=== PATIENT | female | born 1960 | race Caucasian/White ===

== ENCOUNTER 2021-07-12 12:18 | Outpatient (CLI) | payer OTHER, SELFPAY ==
--- NOTE | ~2021-07-12 | MR_ITS ---
EXAMINATION: MR cervical spine wo con DATE: 07/12/2021 13:11 INDICATION: Disease of spinal cord, unspecified. Neck pain. TECHNIQUE: Magnetic resonance imaging (MRI) of the cervical spine was performed without intravenous c ontrast. Sequences included sagittal T2-weighted FSE, sagittal T2-weighted FS FSE, sagittal T1-weight ed FSE, axial MERGE, and axial T2-weighted FSE. COMPARISON: Cervical spine MRI 10/13/2019 FINDINGS: Bone alignment is normal. Vertebral body heights are normal. There are changes of anterior fusion procedure from C5 to C7 with discectomies and anterior plate and screws. Intervertebral disc h eights are normal. There is increased T2-weighted signal intensity in the spinal cord on the right at C5-C6, consistent with myelomalacia. The following disc levels are specifically discussed: C2-C3: The disc does not extend beyond the endplate margin. There is no uncovertebral joint osteoarth ritis. There is severe bilateral facet joint osteoarthritis. There is mild left neural foraminal sten osis. There is no central canal stenosis. C3-C4: The disc does not extend beyond the endplate margin. There is mild right and moderate left unc overtebral joint osteoarthritis. There is moderate right and severe left facet joint osteoarthritis. There is mild right and moderate left neural foraminal stenosis. There is no central canal stenosis. C4-C5: The disc is bulging. There is mild right and moderate left uncovertebral joint osteoarthritis. There is severe bilateral facet joint osteoarthritis. There is mild bilateral neural foraminal steno sis. There is mild central canal stenosis. C5-C6: There is mild bilateral uncovertebral joint hypertrophy. There is mild bilateral facet joint o steoarthritis. There is mild bilateral neural foraminal stenosis. There is no central canal stenosis. C6-C7: There is moderate bilateral uncovertebral joint hypertrophy. There is mild right facet joint o steoarthritis. There is mild bilateral neural foraminal stenosis. There is no central canal stenosis. C7-T1: The disc is bulging. There is mild bilateral uncovertebral joint osteoarthritis. There is catia re right and moderate left facet joint osteoarthritis. There is mild bilateral neural foraminal steno sis. There is no central canal stenosis. IMPRESSION: 1. Myelomalacia at C5-C6. 2. Anterior fusion procedure from C5 to C7. 3. Moderate cervical spondylosis, stable from 10/13/2019. Reviewed, dictated and finalized at location A.
== END 2021-07-12 12:19 | disposition home or self-care (01) ==
LOC: ANHIMG 12:27
PROVIDERS: PCP Internal Medicine Infectious Disease; Visit Provider Psychiatry & Neurology Neurology
DX: G95.89 Other specified diseases of spinal cord (principal); Z98.1 Arthrodesis status; M47.813 Spondylosis without myelopathy or radiculopathy, cervicothoracic region
CPT/HCPCS: 72141

== ENCOUNTER 2022-06-09 08:28 | Outpatient (CLI) | payer OTHER, SELFPAY ==
--- NOTE | ~2022-06-09 | MR_ITS ---
EXAMINATION: MR lumbar spine wo con DATE: 06/09/2022 09:24 INDICATION: Back pain. TECHNIQUE: Magnetic resonance imaging (MRI) of the lumbar spine was performed without intravenous con trast. Sequences included sagittal T2-weighted FSE, sagittal T2-weighted FS FSE, sagittal T1-weighted FSE, and axial T2-weighted FSE. COMPARISON: Lumbar spine MRI 10/08/2018 FINDINGS: Bone alignment is normal. Vertebral body heights are normal. There is mildly decreased disc height at L2-L3 and moderately decreased disc height at L5-S1. The distal spinal cord signal intensi ty is normal. The conus medullaris is at L1. The following disc levels are specifically discussed: L1-L2: The disc does not extend beyond the endplate margin. There is mild left facet joint osteoarthr itis. There is no neural foraminal stenosis. There is no central canal stenosis. L2-L3: The disc is bulging. There is mild bilateral facet joint osteoarthritis. There is mild bilater al neural foraminal stenosis. There is mild central canal stenosis. L3-L4: The disc is bulging. There is moderate bilateral facet joint osteoarthritis. There is mild sancho ateral neural foraminal stenosis. There is mild central canal stenosis. L4-L5: The disc is bulging and has an annular fissure. There is severe bilateral facet joint osteoart hritis. There is mild bilateral neural foraminal stenosis. There is mild central canal stenosis. L5-S1: The disc is bulging and has an annular fissure. The disc abuts the left S1 nerve root in left lateral recess. There is moderate bilateral facet joint osteoarthritis. There is mild bilateral neura l foraminal stenosis. There is mild central canal stenosis. IMPRESSION: 1. Moderate lower lumbar spondylosis, stable from 10/08/2018. Reviewed, dictated and finalized at location A.
== END 2022-06-09 08:29 | disposition home or self-care (01) ==
LOC: ANHIMG 08:30
PROVIDERS: PCP Internal Medicine Infectious Disease; Visit Provider Neurological Surgery
DX: M47.896 Other spondylosis, lumbar region (principal)
CPT/HCPCS: 72148

== ENCOUNTER 2022-09-07 11:13 | Outpatient (CLI) | payer OTHER, SELFPAY ==
--- NOTE | 2022-09-07 11:48 | ECG_ITS ---
Measurements Intervals [place] Rate: 58 P: 56 [place]: 140 QRS: 17 QRSD: 88 T: 73 QT: 392 QTc: 387 Interpretive Statements SINUS BRADYCARDIA WITH SINUS ARRHYTHMIA BORDERLINE ST-T WAVE ABNORMALITY- HIGH LATERAL LEADS BASELINE ARTIFACT- I, II, III BORDERLINE ECG NO PREVIOUS ECG AVAILABLE FOR COMPARISON Electronically Signed On 09-07-2022 12:51:50 CDT by Jb Pro D.O.
[2022-09-07 12:15] LABS: Anion Gap 12 mmol/L (8-16); Blood Urea Nitrogen 15 mg/dL (7-17); Calcium 9.4 mg/dL (8.4-10.2); Carbon Dioxide 30 mmol/L (22-30); Chloride 97 mmol/L (98-107); Estimated Glomerular Filt Rate > 60; Glucose 125 mg/dL (65-110); Potassium 3.7 mmol/L (3.4-5.0); Sodium 139 mmol/L (137-145)
== END 2022-09-07 11:14 | disposition home or self-care (01) ==
PROVIDERS: Anesthesiology; PCP Internal Medicine Infectious Disease; Visit Provider Neurological Surgery
DX: M51.26 Other intervertebral disc displacement, lumbar region (principal); Z79.899 Other long term (current) drug therapy; Z01.818 Encounter for other preprocedural examination; R94.31 Abnormal electrocardiogram [ECG] [EKG]
CPT/HCPCS: 36415; 80048; 86850; 86900; 86901; 93005

== ENCOUNTER 2022-09-21 01:32 | Day surgery (SDC) | payer OTHER, SELFPAY ==
[2022-09-06 12:33] VITALS: BMI 28.9
--- NOTE | 2022-09-06 12:43 | PC.NURSE ---
Addendum entered by Kacey Macdonald RN 09/14/22 12:29: PT TO ARRIVE AT 0600 ON 09/21/22 FOR SURGERY AT 0730. MAXIMUM 20 OZ OF WATER UNTIL 0430. STOP VITAMINS AFTER 09/17/22. Original Note: Report to the Outpatient Waiting Room, entrance under the green pavilion located off [facility], at time 12:00 on date 09/12/22. Planned Procedure Time: 2:00. Time changes happen often and if your time is changed the preop area will call you the afternoon before. - You and your visitor will be asked to self-screen and do not enter if you have any COVID symptoms. - We encourage only one visitor and NO visitors under age 16 are allowed at this time. Your visitor will receive communication by the phone number that is given day of service. - The patient visitor is requested to social distance or may leave the building when not with patient due to restrictions. - A mask is OPTIONAL within the hospital. Patients may have clear liquids (water, carbonated beverages, clear teas, apple juice) until 3 hours prior to surgery (11:00) with a maximum of 20 ounces. - No food from midnight until time of surgery Take the following medications with a SIP of water the morning of surgery: INHALER, AMLODIPINE, ISOSORBIDE Medications to discontinue per physician: VITAMINS Date to take last dose: 09/08/22 Please no make-up, nail khmer, hairspray, perfume, deodorant, or body powder the day of surgery. No jewelry (including any body piercings) or valuables the day of surgery, leave them at home. Please take a shower or bath the night before, or the morning of, surgery with an antibacterial soap. Wear comfortable, loose fitting clothing. - Jewelry must be removed prior to entering the operating room. Rings and piercings that are not removed may be cut off. - The hospital will not accept responsibility for valuables. - Please leave all valuables, including medications, at home the day of surgery. If you are going home after surgery, a licensed limousine driver must drive you home. - NO public transportation without another adult. - We recommend that an adult stay with you for 24 hours following discharge. - We also recommend that you do not drive, make important decision, drink alcoholic beverages, or take any drugs that were not prescribed by your health care provider for at least 24 hours after your discharge time. Follow any additional instructions given to you from your surgeon. If you or anyone in your household have experienced Covid symptoms in the past week, please notify your surgeon or the nurse liaison at the phone number below for possible testing. Telephone instructions given to SAMUEL - ABBI MEJIA and asked if any additional questions and then verbalized understanding. Patient advised to call surgeon office or pre surgery nurse liaison [phone] if any additional questions.
--- NOTE | 2022-09-14 12:30 | PC.NURSE ---
Pt states no changes in medications or health history since initial interview. New pre-op instructions reviewed with pt. Pt denies further questions at this time.
--- NOTE | 2022-09-20 13:28 | WPDANESEPPF ---
Anes - Initial Pre Proc Eval Procedure: Operation Date: 09/21/22 07:30 Proposed Procedures p Left L4-5, Left L5-S1 Far Lateral Foraminotomy Microdiscectomy - Adolfo Bruno MD Date/Time: 09/20/22 13:28 Surgeon: Adolfo Bruno MD Pre Op Diagnosis: Lumbar Disc Herniation Patient Data Age: 62 Gender: F Height: 1.65 m Weight: 78.93 kg Allergies Allergy/AdvReac Type Severity Reaction Status Date / Time No Known Allergies Allergy Verified 09/14/22 12:30 Home Medications Medication Instructions Recorded Confirmed Type amlodipine 10 mg tablet 10 mg PO DAILY 06/03/21 09/14/22 History atorvastatin 40 mg tablet (Lipitor) 40 mg PO DAILY 06/03/21 09/14/22 History hydrochlorothiazide 25 mg tablet 25 mg PO DAILY 06/03/21 09/14/22 History isosorbide dinitrate 30 mg tablet 30 mg PO .COMPLEX 06/03/21 09/14/22 History nitroglycerin 0.4 mg sublingual 0.4 mg sublingual Q5M 06/03/21 09/14/22 History tablet (Nitrostat) albuterol sulfate 90 mcg/actuation 1 inh inhalation Q4H 05/22/22 09/14/22 History aerosol inhaler cholecalciferol (vitamin D3) 50 50 mcg PO DAILY 09/06/22 09/14/22 History mcg (2,000 unit) tablet (Vitamin D3) Patient hx anesthesia problems: none Family hx anesthesia problems: none Results Review: All pre-operative results and documents have been reviewed as part of the pre-operative evaluation. FOR[facility]LY [facility] Past Medical History Medical History (Updated 09/20/22 @ 13:30 by Dontrell Bill DO) Burning sensation of ulnar region of forearm Cervicalgia COPD (chronic obstructive pulmonary disease) Diabetes History of heart attack 10 years ago Hyperlipidemia Hypertension Myelopathy GABRIELA (obstructive sleep apnea) quit using CPAP Surgical History Surgical History (Updated 09/20/22 @ 13:30 by Dontrell Bill DO) Hx of fusion of cervical spine S/P cervical spinal fusion Family History Family History Other Acute myocardial infarction Asthma Breast cancer Diabetes mellitus Heart disease Hypertension Social History Social History Smoking packs per day: 1 Smoking cigarettes per day: 20.0 Years smoked: 35 Smoking pack-years: 35.00 Smoking status: Current every day smoker Tobacco type: cigarettes Additional smoking assessment comments: CUTTING DOWN OF 09/05/22 - USING NICOTINE PATCH Alcohol intake: never Living arrangements: alone Spiritual care concerns: No Anes - Eval Final PreProcedure Day of Procedure 09/20/22 13:28 Patient weight: obese Heart: regular rate and rhythm Lungs: clear to auscultation Airway: Mallampati scale class II Neurological: alert and oriented Last oral intake: >/= 8 hours ASA classification: III Emergent: no Anesthetic plan: proceed Anesthesia type and monitoring: general ETT and standard monitoring Results Review: All pre-operative results and documents have been reviewed as part of the pre-operative evaluation. Informed Consent: The patient's anesthetic plan and its attendant risks and benefits were discussed with the patient/family/POA. Questions were solicited and answers provided to the satisfaction of the patient/family/POA.
[2022-09-21] VITALS (10 sets, daily range): BP systolic 112–152; BP diastolic 57–73; PULSE 61–93; RESP 15–21; TEMP 36.6–36.8; O2SAT 92–100
--- NOTE | ~2022-09-21 | XR_ITS ---
EXAMINATION: XR fluoroscopy no charge INDICATION: Microdiscectomy TECHNIQUE: A single intraoperative fluoroscopic image is submitted for review. Total fluoroscopic alexey e was 1.3 seconds. COMPARISON: None available FINDINGS: Fluoroscopic image demonstrates a surgical instrument situated posteriorly at the level of L5. Please refer to procedure note for full details. IMPRESSION: 1. Please refer to procedure note for full details. Reviewed, dictated and finalized at location F. RAL RESOURCES TECHNICIAN
[2022-09-21] MEDS: LACTATED RINGERS 1,000 ML 30 ML IV CONT ×2 (07:07→09:32)
--- NOTE | 2022-09-21 07:33 | PM.IMHP ---
H&P: HPI History of Present Illness Date/Time: 09/21/22 07:33 Chief Complaint: Back and leg pain Narrative: Krista is a 62-year-old female with back and leg pain related foraminal stenosis at L4-5 and L5-S1 who presents for far lateral foraminotomy and microdiskectomy. She has not changed appreciably since we last saw her. She is not having bowel or bladder difficulty. She does not have dermatomal numbness or specific muscle group weakness. Review of Systems Review of Systems: Patient denies, fever, chills, nausea, vomiting, weight loss, weight gain, chest pain, dysuria. She has shortness of breath and cough at times. She acknowledges back and leg pain as above. The review of systems is otherwise negative on 12 systems PMFSH Past Medical History Medical History Burning sensation of ulnar region of forearm Cervicalgia COPD (chronic obstructive pulmonary disease) Diabetes History of heart attack 10 years ago Hyperlipidemia Hypertension Myelopathy GABRIELA (obstructive sleep apnea) quit using CPAP Surgical History Surgical History Hx of fusion of cervical spine S/P cervical spinal fusion Family History Family History Other Acute myocardial infarction Asthma Breast cancer Diabetes mellitus Heart disease Hypertension Social History Social History Smoking packs per day: 1 Smoking cigarettes per day: 20.0 Years smoked: 35 Smoking pack-years: 35.00 Smoking status: Current every day smoker Tobacco type: cigarettes Additional smoking assessment comments: CUTTING DOWN OF 09/05/22 - USING NICOTINE PATCH Alcohol intake: never Living arrangements: alone Spiritual care concerns: No Meds Home Medications and Allergies Home Medications Medication Instructions Recorded Confirmed Type amlodipine 10 mg tablet 10 mg PO DAILY 06/03/21 09/14/22 History atorvastatin 40 mg tablet (Lipitor) 40 mg PO DAILY 06/03/21 09/14/22 History hydrochlorothiazide 25 mg tablet 25 mg PO DAILY 06/03/21 09/14/22 History isosorbide dinitrate 30 mg tablet 30 mg PO .COMPLEX 06/03/21 09/14/22 History nitroglycerin 0.4 mg sublingual 0.4 mg sublingual Q5M 06/03/21 09/14/22 History tablet (Nitrostat) albuterol sulfate 90 mcg/actuation 1 inh inhalation Q4H 05/22/22 09/14/22 History aerosol inhaler cholecalciferol (vitamin D3) 50 50 mcg PO DAILY 09/06/22 09/14/22 History mcg (2,000 unit) tablet (Vitamin D3) Allergies Allergy/AdvReac Type Severity Reaction Status Date / Time No Known Allergies Allergy Verified 09/14/22 12:30 Exam Neuro: Other: Strength is 5/5 in all muscle groups of the bilateral lower extremities. Sensation is intact to light touch throughout the lower extremities. Regular rate and rhythm. Clear to auscultation Assessment and Plan Assessment and plan (1) Lumbar disc herniation: Code(s): M51.26 - Other intervertebral disc displacement, lumbar region Status: Acute Plan Krista is a 62-year-old female with back and leg pain related to foraminal disc herniation presents for far lateral foraminotomy and microdiskectomy at L4-5 and L5-S1. I again described to her that operation, its risks, potential benefits, the alternatives, the operative and postop course in detail answered all her questions personally. She indicates understanding and elects to proceed with that operation.
--- NOTE | 2022-09-21 07:36 | WPDHPUPDATE1 ---
History and Physical Update Update Date/Time: 09/21/22 07:36 History and Physical has been reviewed, including an updated exam of the patient. There are NO changes in the patient's condition. Risks, benefits, and alternatives have been discussed and questions answered. Patient agrees to proceed with procedure.
[2022-09-21] MEDS: ceFAZolin 2 GM/D5W 50 ML 2 GM/50 ML BAG IVPB (07:41)
[2022-09-21] MEDS: LIDO 2%/EPINEPHRINE 1:100,000 50 ML VIAL 10 ML INFILTRATE (09:04)
--- NOTE | 2022-09-21 09:30 | W.PM.PROC2 ---
Procedure Note - Detailed Date of Procedure 09/21/22 Pre-op Diagnosis Lumbar Disc Herniation Post-op Diagnosis Same Procedure Performed Left L4-5 and L5-S1 far lateral microscopic lumbar diskectomy Surgeon Adolfo Bruno MD Rooming House Operator Drew Anesthesia General Indications Krista is a 62-year-old female with back and leg pain related to the above pathology presents for decompression from a posterior approach. Description of Procedure Krista was brought to the operating room in the supine position, was sedated, intubated and placed under general anesthesia in routine fashion. She was then turned into the prone position on a Jair frame. The area of operation on her back was examined, marked for incision, prepped and draped in routine sterile fashion. Incision was marked over the L4 through S1 spinous processes in the midline. This area was injected with 0.5% lidocaine with [id number] epinephrine. Intravenous antibiotics given prior to incision. Incision was made with a 10 blade scalpel down to the lumbodorsal fascia. A subperiosteal dissection of the muscle soft tissue away from spinous process and lamina at L4 through S1 on the left was performed with a subperiosteal elevator and Bovie cautery. Verifying x-rays obtained to verify the level of operation. At the L4-5 and L5-S1 levels on the left a Midas Rodney drill was used to perform a lateral resection of the pars and facet until the soft contents of the foramen were encountered. Under microscopy the yellow ligament was lifted and removed piecemeal using Kerrison punches. The nerve root was reflected superiorly. The ligament was entered using an 11 blade scalpel. At the L5-S1 level a drill had to be used to make a hole in the osteophytes with a could be removed with curved curettes and pituitary rongeur as. At L4-5 soft disc herniation was discovered was removed with an Mae curette, curved curette and pituitary rongeur. These maneuvers were performed at each level until a nerve hook could be placed out the foramen proximally and distally to confirm microdecompression. The wound was then copiously irrigated with bacitracin irrigation all bleeding was stopped with bipolar Bovie cautery and Gelfoam thrombin powder. Wound was then closed in layered fashion with 2-0 Vicryl interrupted sutures in the lumbodorsal fascia and Jennifer's layer. 3-0 Vicryl buried interrupted sutures were placed in the dermis in the skin was closed with a running 4-0 Monocryl subcuticular stitch and dressed with a Dermabond. The patient was then allowed to wake up in the operating room and was taken to the recovery room in stable condition. There were no immediate complications of this operation. All counts were reported correct at the end the case. Blood loss was 50 cc. The patient was neurologically at her baseline postoperatively. Estimated Blood Loss 50 IV Fluids 1,000 Complications None Condition Stable Disposition PACU [facility] Billing Surgery - Charge Forward: Surgery Billing
[2022-09-21] MEDS: ALBUTEROL SULFATE NEB 2.5 MG/3 ML INH INHALATION (09:49)
== END 2022-09-21 11:40 | disposition home or self-care (01) ==
PROVIDERS: PCP Internal Medicine Infectious Disease; Visit Provider Neurological Surgery
PROC: (CPT 63005; principal; 2022-09-21 07:30)
DX: M51.26 Other intervertebral disc displacement, lumbar region (principal); M48.061 Spinal stenosis, lumbar region without neurogenic claudication; I10 Essential (primary) hypertension; E78.5 Hyperlipidemia, unspecified; E11.9 Type 2 diabetes mellitus without complications; J44.9 Chronic obstructive pulmonary disease, unspecified; I25.2 Old myocardial infarction; G47.33 Obstructive sleep apnea (adult) (pediatric); Z79.51 Long term (current) use of inhaled steroids; Z98.1 Arthrodesis status; F17.210 Nicotine dependence, cigarettes, uncomplicated; E66.9 Obesity, unspecified; Z68.28 Body mass index [BMI] 28.0-28.9, adult
CPT/HCPCS: 63056; 63057; 94640; 99199; J0330; J0690; J1100; J2250; J2270; J2405; J2704; J7120

== ENCOUNTER 2022-11-29 15:08 | Outpatient (CLI) | payer OTHER, SELFPAY ==
--- NOTE | ~2022-11-29 | MR_ITS ---
EXAMINATION: MR lumbar spine wo/w con DATE: 11/29/2022 16:26 INDICATION: Low back pain. Left leg pain. TECHNIQUE: Magnetic resonance imaging (MRI) of the lumbar spine was performed without and with 16 mL MultiHance intravenous contrast. COMPARISON: Lumbar spine MRI 06/09/2022 FINDINGS: Bone alignment is normal. Vertebral body heights are normal. There is mildly decreased disc height at L2-L3 and moderately decreased disc height at L5-S1. The distal spinal cord signal intensi ty is normal. The conus medullaris is at L1. The following disc levels are specifically discussed: L1-L2: The disc does not extend beyond the endplate margin. There is mild left facet joint osteoarthr itis. There is no neural foraminal stenosis. There is no central canal stenosis. L2-L3: The disc is bulging and has an annular fissure. There is mild bilateral facet joint osteoarthr itis. There is mild bilateral neural foraminal stenosis. There is mild central canal stenosis. L3-L4: The disc is bulging. There is mild bilateral facet joint osteoarthritis. There is mild bilater al neural foraminal stenosis. There is mild central canal stenosis. L4-L5: The disc is bulging. There is severe right and moderate left facet joint osteoarthritis. There is mild bilateral neural foraminal stenosis. There is enhancing granulation tissue in the left neura l foramen. There is mild central canal stenosis. L5-S1: The disc is bulging and has an annular fissure. There is moderate bilateral facet joint osteoa rthritis. There is mild right neural foraminal stenosis. There is enhancing granulation tissue in the left neural foramen. There is mild central canal stenosis. IMPRESSION: 1. Moderate lower lumbar spondylosis with interval left-sided interventions at L4-L5 and L5-S1. Reviewed, dictated and finalized at location A. NEL MARKETING PROGRAM MANAGER
== END 2022-11-29 15:09 | disposition home or self-care (01) ==
PROVIDERS: PCP Internal Medicine Infectious Disease; Visit Provider Neurological Surgery
DX: M51.26 Other intervertebral disc displacement, lumbar region (principal); M79.606 Pain in leg, unspecified; M47.896 Other spondylosis, lumbar region
CPT/HCPCS: 72158; A9577